=== PATIENT | male | born 1955 | race Caucasian/White ===

== ENCOUNTER 2021-06-21 17:54 | Emergency (ER) | payer SELFPAY ==
[2021-06-21 18:05] VITALS: BP 146/80; PULSE 73; RESP 18; TEMP 36.5; O2SAT 99
--- NOTE | 2021-06-21 19:13 | ED.URI ---
HPI - URI/Sore Throat General Chief Complaint: Upper Respiratory Infection Stated Complaint: CONGESTION Source: patient Mode of arrival: ambulatory History of Present Illness HPI Narrative: This is a 66-year-old male who presented to urgent care with complaints of a sore throat uncontrollable cough and muscle pain to his chest area due to coughing. Patient did not take anything at home for his symptoms. Patient strep test negative. He did note that he has some shortness of breath but he is a smoker. The patient denies,CP, palpitation, extremity numbness, lightheadedness, dizziness, constipation, diarrhea, chills, or fever. Related Data Allergies Allergy/AdvReac Type Severity Reaction Status Date / Time No Known Allergies Allergy Unknown Verified 01/04/19 09:58 Review of Systems Review of Systems: A 14 organ system Review of Systems was performed and pertinent positives included in the HPI, otherwise remaining ROS is negative. [facility] Family History Family History (Updated 06/21/21 @ 19:15 by JERI MackayP-C) Other Family history non-contributory Exam Narrative: GENERAL: This is a well-nourished, well-developed patient, in no apparent distress. HEAD: normocephalic, atraumatic. EYES: PERRL. Sclera clear/white. Vision is grossly intact. EARS: External ears normal, auditory canals clear and without drainage, TMs normal without perforation. Hearing grossly intact. NOSE: External nose normal with no obvious nasal discharge, nares without redness, no rhinorrhea. THROAT: Mucous membranes moist, posterior pharynx clear. NECK: Neck supple, non-tender without lymphadenopathy, masses or thyromegaly. CARDIOVASCULAR: Regular rate and rhythm without murmurs, gallops, or rubs. RESPIRATORY: Clear to auscultation. Breath sounds equal bilaterally. No wheezes, rales, or rhonchi. GASTROINTESTINAL: Abdomen soft, non-tender, nondistended. Bowel sounds are active. No hepato-splenomegaly, or palpable masses. No guarding. SKIN: warm, intact with no suspicious lesions or rash, good texture and turgor. NEURO: awake, alert, and oriented to person, place and time. There were no obvious focal neurologic abnormalities. Steady gait EXTREMITIES: Normal range of motion. No edema. No calf tenderness. Negative Homans sign bilaterally. BACK: Nontender without deformity or crepitance. No flank tenderness. Course Course Emergency Course: Patient will discharge with bronchitis she will be given Tessalon Perles, guaifenesin, Flexeril for his muscle pain and albuterol Vital Signs Vital signs: Vital Signs Temperature 97.7 F 06/21/21 18:05 Pulse Rate 73 06/21/21 18:05 Respiratory Rate 18 06/21/21 18:05 Blood Pressure 146/80 H 06/21/21 18:05 Pulse Oximetry 99 06/21/21 18:05 Temperature 97.7 F 06/21/21 18:05 Pulse Rate 73 06/21/21 18:05 Respiratory Rate 18 06/21/21 18:05 Blood Pressure 146/80 H 06/21/21 18:05 Pulse Oximetry 99 06/21/21 18:05 MDM - URI/Sore Throat Differential Diagnosis Differential diagnosis: Likely upper respiratory infection, sinusitis, viral infection and bronchitis Lab Data Labs: Strep Screen Presumptive Negative *(Reference Range: Negative)* Discharge Plan Discharge Clinical Impression: Bronchitis Patient Disposition: Home, Self-Care Condition: Stable Instructions: Antibiotic Form, Acute Bronchitis (ED) Additional Instructions: Increase fluids especially juices and water [id number] cough and cold medicine of your choice for your symptoms Prescription cough medicine as directed--caution drowsiness and no driving or alcohol Cough tablets as directed for cough--do not bite, chew or suck on--swallow whole Continue your inhaler/nebulizer as directed Steroids as directed--take with food heat to the face 20-30 minutes 4-6 times a day for pain Salt water gargles, throat lozenges or throat sprays as desired Antibiotic as
== END 2021-06-21 19:15 | disposition home or self-care (01) ==
PROVIDERS: Emergency Provider Nurse Practitioner
DX: J40 Bronchitis, not specified as acute or chronic (principal)
CPT/HCPCS: 87081; 87880; 99213; G0463

== ENCOUNTER 2022-01-18 16:16 | Emergency (ER) | payer SELFPAY ==
--- NOTE | ~2022-01-18 | CT_ITS ---
EXAMINATION: CT abdomen pelvis w con DATE: 01/18/2022 18:34 INDICATION: Left groin pain. Left abdominal pain. TECHNIQUE: Computed tomography (CT) of the abdomen and pelvis was performed with 100 mL Omnipaque 300 intravenous contrast. Automated exposure control and iterative reconstruction technique were employe d. The dose-length product was 738.13 mGy-cm. COMPARISON: None. FINDINGS: The visualized portions of the lung bases demonstrate mild atelectasis. No pleural effusion . The heart size is normal. There are coronary artery calcifications. No pericardial effusion. There is a small sliding hiatal hernia. Calcifications in the liver is minimally consistent with old granul omatous disease. There are changes of cholecystectomy. The pancreas and adrenal glands are normal. Th ere is cortical thinning of the kidneys. There is a left inguinal hernia containing fat. There is sub cutaneous fat stranding in left inguinal region. There are no dilated loops of bowel. There are no di lated loops of bowel. The appendix is not visualized. There is a supraumbilical ventral hernia contai jen fat. There are no pathologically enlarged lymph nodes. There is no free intraperitoneal fluid. T here is a benign bone island in right pelvis. There is severe lower lumbar spondylosis. IMPRESSION: 1. Subcutaneous fat stranding in left inguinal region, consistent with inflammation. 2. Left inguinal hernia containing fat. 3. Small sliding hiatal hernia. 4. Supraumbilical ventral hernia containing fat. Reviewed, dictated and finalized at location A. IMPRESSION: 1. Subcutaneous fat stranding in left inguinal region, consistent with inflamma tion. 2. Left inguinal hernia containing fat. 3. Small sliding hiatal hernia. 4. Supraumbilical ventral hernia containing fat.
[2022-01-18 16:25] VITALS: BP 134/80; PULSE 91; RESP 14; TEMP 36.6; O2SAT 98
[2022-01-18 17:45] LABS: Basophils Absolute Auto 0.1 K/mm3 (0.0-0.1); Basophils Percent Auto 0.8 % (0.2-1.2); Eosinophils Absolute Auto 0.2 K/mm3 (0-0.3); Eosinophils Percent Auto 2.1 % (0-4.4); Hematocrit 38.4 % (42.0-52.0); Hemoglobin 12.4 g/dL (14.0-18.0); Immature Granulocyte Absolute 0.02 K/mm3 (0.00-0.031); Immature Granulocyte Percent A 0.2 % (0-0.5); Lymphocytes Absolute Auto 2.11 K/mm3 (0.9-3.2); Lymphocytes Percent Auto 24.3 % (18.3-44.2); Mean Corpuscular HGB Conc 32.3 g/dl (32-36); Mean Corpuscular Hemoglobin 30.1 pg (26-34); Mean Corpuscular Volume 93.2 fl (80-100); Mean Platelet Volume 10.5 fl (7.4-10.4); Monocytes Absolute Auto 0.7 K/mm3 (0.1-0.6); Monocytes Percent Auto 7.8 % (2.6-8.5); Neutrophils Absolute Auto 5.6 K/mm3 (1.3-6.7); Neutrophils Percent Auto 64.8 % (45.5-73.1); Platelet Count Result 185 k/mm3 (150-375); Red Blood Count 4.12 M/mm3 (4.6-6.20); Red Cell Distribution Width 13.7 % (11.5-14.5); White Blood Count 8.7 K/mm3 (4.5-10.0)
[2022-01-18 17:51] LABS: Appearance Urine Clear (Clear); Bilirubin Urine Negative (Negative); Blood Urine Negative (Negative); Color Urine Yellow (Yellow); Glucose Urine UA Negative (Negative); Ketones Urine Negative (Negative); Leukocyte Esterase Ur Negative LEU/UL (Negative); Nitrate Urine Negative (Negative); Protein Urine Negative (Negative); Urobilinogen Urine 0.2 mg/dL (<2.0); pH Urine 5.5 (5.0-9.0)
[2022-01-18 17:56] LABS: INR 1.1
[2022-01-18 17:57] LABS: Partial Thromboplastin Time 31.8 SECONDS (22.3-36.8)
[2022-01-18 17:58] LABS: Alanine Aminotransferase 13 U/L (6-50); Albumin Level 3.8 g/dL (3.5-5.1); Alkaline Phosphatase 41 U/L (38-126); Anion Gap 4 mmol/L (8-16); Aspartate Amino Transferase 21 U/L (17-59); Bilirubin,Total 0.3 mg/dL (0.2-1.3); Blood Urea Nitrogen 9 mg/dL (9-20); Calcium 8.8 mg/dL (8.4-10.2); Carbon Dioxide 27 mmol/L (22-30); Chloride 105 mmol/L (98-107); Estimated CRCL calculation 72 ml/min; Estimated Glomerular Filt Rate > 60; Glucose 100 mg/dL (65-110); Potassium 3.5 mmol/L (3.4-5.0); Sodium 136 mmol/L (137-145)
[2022-01-18 18:10] LABS: Add Urine Microscopic? NO
--- NOTE | 2022-01-18 18:36 | ED.GENADULT ---
HPI - General Adult General Chief complaint: Skin/Abscess/Foreign Body Stated complaint: groin pain/bruising Time Seen by Provider: 01/18/22 17:01 Source: patient and RN notes reviewed Mode of arrival: ambulatory Limitations: no limitations History of Present Illness HPI narrative: This is a 66 year old male who presents for left groin bruising and pain. Patient states on Friday he slid off the jasmine of his car, and once he stepped down he felt pain to left groin. He has noticed worsening. He has some mild pain with movement. He denies new leg numbness or tingling. He reports mild left lower abdominal. HE denies any other abnormal bruising or bleeding. He denies lightheadedness or dizziness. Related Data Home Medications Medication Instructions Recorded Confirmed No Home Medications 01/18/22 01/18/22 Allergies Allergy/AdvReac Type Severity Reaction Status Date / Time No Known Allergies Allergy Unknown Verified 01/04/19 09:58 Review of Systems Review of Systems: All systems reviewed & are unremarkable except as noted in HPI and below Constitutional: Constitutional: Denies chills, Denies fatigue and Denies fever(s) ENT: Denies nasal congestion Gastrointestinal: Gastrointestinal: Reports abdominal pain, Denies nausea and Denies vomiting PMF Past Medical History Medical History (Updated 01/19/22 @ 00:00 by Geremias Ferguson) Arthritis Surgical History Surgical History (Updated 01/18/22 @ 19:04 by Marianna Arreola MD) History of appendectomy Family History Family History (Updated 06/21/21 @ 19:15 by LEIGHTON Mackay-C) Other Family history non-contributory Social History Social History (Updated 01/18/22 @ 19:04 by Marianna Arreola MD) Smoking status: Current every day smoker Exam Narrative: GENERAL: Well-appearing, well-nourished, and in no acute distress. HEAD: Normocephalic, atraumatic EYES: EOMI, conjunctiva clear without discharge NECK: Supple, without lymphadenopathy or mass RESPIRATORY: No respiratory distress, Airway patent, Respirations non-labored, Clear to auscultation without rales, rhonchi or wheeze HEART: Regular rate and rhythm. No murmur heard. Normal peripheral pulses. ABDOMEN: Soft, LLQ TTP, nondistended, normal active bowel sounds. No masses. No rebound or guarding, No organomegaly., left groin ecchymosis, ttp, no scrotal involvement EXTREMITIES: No edema, normal strength with full range of motion. SKIN: Warm, dry, normal color without rash NEURO: Alert and oriented x3. CN 2-12 grossly intact. No focal deficits. PSYCH: Normal mood and affect. Course Reevaluation(s) Reevaluation #1: I discussed with patient bruising is likely due to pulled muscle. I discussed treatment and follow up . Date: 01/18/22 Time: 19:05 Vital Signs Vital signs: Vital Signs Temperature 97.8 F 01/18/22 16:25 Pulse Rate 91 01/18/22 16:25 Respiratory Rate 14 01/18/22 16:25 Blood Pressure 134/80 01/18/22 16:25 Pulse Oximetry 98 01/18/22 16:25 Oxygen Delivery Room Air 01/18/22 16:25 Temperature 97.8 F 01/18/22 16:25 Pulse Rate 69 01/18/22 19:27 Respiratory Rate 17 01/18/22 19:27 Blood Pressure 129/74 01/18/22 19:27 Pulse Oximetry 97 01/18/22 19:27 Oxygen Delivery Room Air 01/18/22 16:25 Medical Decision Making Vital Signs Vital Signs: Vital Signs Temperature 97.8 F 01/18/22 16:25 Pulse Rate 91 01/18/22 16:25 Respiratory Rate 14 01/18/22 16:25 Blood Pressure 134/80 01/18/22 16:25 Pulse Oximetry 98 01/18/22 16:25 Oxygen Delivery Room Air 01/18/22 16:25 Temperature 97.8 F 01/18/22 16:25 Pulse Rate 69 01/18/22 19:27 Respiratory Rate 17 01/18/22 19:27 Blood Pressure 129/74 01/18/22 19:27 Pulse Oximetry 97 01/18/22 19:27 Oxygen Delivery Room Air 01/18/22 16:25 Lab Data Lab results reviewed: Yes I reviewed the patient's lab results. Result diagrams:
[2022-01-18 19:27] VITALS: BP 129/74; PULSE 69; RESP 17; O2SAT 97
== END 2022-01-18 19:29 | disposition home or self-care (01) ==
PROVIDERS: Emergency Provider General Practice
DX: S30.1XXA Contusion of abdominal wall, initial encounter (principal); M19.90 Unspecified osteoarthritis, unspecified site; K40.90 Unilateral inguinal hernia, without obstruction or gangrene, not specified as recurrent; K44.9 Diaphragmatic hernia without obstruction or gangrene; K43.9 Ventral hernia without obstruction or gangrene; F17.200 Nicotine dependence, unspecified, uncomplicated; W17.89XA Other fall from one level to another, initial encounter
CPT/HCPCS: 36415; 74177; 80053; 81003; 85025; 85610; 85730; 99284; Q9967

== ENCOUNTER 2022-08-21 13:52 | Outpatient (CLI) | payer MEDICARE, SELFPAY ==
--- NOTE | ~2022-08-21 | US_ITS ---
EXAMINATION: US art doppler w press LE BI DATE: 08/21/2022 15:37 INDICATION: Lower limb pain and decreased pulses TECHNIQUE: Segmental pressures and plethysmographic and Doppler waveforms of the brachial and lower e xtremity arteries were obtained. COMPARISON: None. FINDINGS: Right and left brachial artery pressures of 133 mm Hg and 137 mm Hg, respectively, are concordant (no rmal difference <= 30 mmHg). The right and left high-thigh pressure indices are 1.01 and 0.91, respec tively (normal > 1.2). The right ankle-brachial index (JACINDA) is 0.85 (normal >= 0.9-1). The right great toe-brachial index (T BI) is 0.39 (normal >= 0.6-0.8). The right lower extremity segmental pressure gradients are normal. I ncreased between the pqlkj-sha-igbu and ojyhx-nui-ektv right popliteal artery and the sdnba-jza-xqho popliteal artery and the arteries of the right ankle likely due to artifactually elevated velocities at the ahexd-fim-hqnp right popliteal artery. (normal gradients <= 20-30 mmHg between adjacent levels on the same leg or the same levels on the two legs). Arterial waveforms are biphasic with systolic u pstrokes which remain within normal limits. The left JACINDA is 0.49. The left TBI is 0.35. The left lower extremity segmental pressure gradients are increased between the left high thigh and the mqtlp-pii-yriv popliteal artery. Arterial waveforms ar e biphasic with systolic upstrokes which remain within normal limits. IMPRESSION: 1. Arterial occlusive disease to bilateral lower limbs likely in the aortobiiliac arteries as well as within both lower limbs characterized by mildly decreased bilateral high thigh pressure indices and right JACINDA, severely decreased left JACINDA and moderately decreased bilateral TBI's Reviewed, dictated and finalized at location A. OPERATIONS TECHNICAL DIRECTOR IMPRESSION: 1. Arterial occlusive disease to bilateral lower limbs likely in the aortobiili ac arteries as well as within both lower limbs characterized by mildly decrease d bilateral high thigh pressure indices and right JACINDA, severely decreased left JACINDA and moderately decreased bilateral TBI's
== END 2022-08-21 13:53 | disposition home or self-care (01) ==
PROVIDERS: PCP Family Medicine Adolescent Medicine; Visit Provider Family Medicine Adolescent Medicine
DX: I73.9 Peripheral vascular disease, unspecified (principal)
CPT/HCPCS: 93923

== ENCOUNTER 2022-10-01 14:08 | Outpatient (CLI) | payer MEDICARE, SELFPAY ==
--- NOTE | ~2022-10-01 | XR_ITS ---
EXAMINATION:XR_[id number]_CR DATE: 10/01/2022 14:24 INDICATION: Neck pain TECHNIQUE: AP, lateral, lateral swimmers and odontoid views of the cervical spine are provided. COMPARISON: None FINDINGS: Alignment is normal. The odontoid process is intact. No fracture is identified. The vertebr al body heights are maintained. There is moderate loss of intervertebral disc space height from C3-4 through C6-7. There is multilevel moderate facet and uncovertebral joint osteoarthritis. Prevertebral soft tissues are normal. IMPRESSION: 1. Moderate cervical spondylosis without acute findings. Reviewed, dictated and finalized at location B.
== END 2022-10-01 14:09 ==
PROVIDERS: PCP Family Medicine Adolescent Medicine; Visit Provider Family Medicine Adolescent Medicine
DX: M54.2 Cervicalgia (principal); M43.02 Spondylolysis, cervical region
CPT/HCPCS: 72040

== ENCOUNTER → 2022-12-23 13:49 | Outpatient (CLI) | payer MEDICARE, SELFPAY ==
--- NOTE | ~2022-12-23 | CT_ITS ---
EXAMINATION: CT lung screening DATE: 12/23/2022 14:00 INDICATION: Personal history nicotine dependence, current smoker with 61 pack year history TECHNIQUE: Computed tomography (CT) of the chest was performed without intravenous contrast. The dose -length product (DLP) was 104.07 mGy-cm. Automated exposure control and iterative reconstruction tech [employer] were employed. COMPARISON: None FINDINGS: There is mild emphysema. There is a 2 mm nodule of the right lung apex. Scarring is noted i n the lung apices. The lungs are free of acute opacities. No pleural effusion or pneumothorax. No pat hologically enlarged thoracic lymph nodes are identified. The heart size is normal. Calcified coronar y artery atherosclerosis is noted. There is mild thoracic spondylosis. There is a small sliding hiata l hernia. Changes of cholecystectomy are noted. IMPRESSION: 1. Lung-RADS category 2: Benign appearance or behavior. Continue annual screening with noncontrast lo w-dose chest CT in 12 months. Reviewed, dictated and finalized at location [] IMPRESSION: 1. Lung-RADS category 2: Benign appearance or behavior. Continue annual screeni ng with noncontrast low-dose chest CT in 12 months.
== END ==
PROVIDERS: PCP Family Medicine Adolescent Medicine; Visit Provider Nurse Practitioner Family
DX: Z12.2 Encounter for screening for malignant neoplasm of respiratory organs (principal); F17.210 Nicotine dependence, cigarettes, uncomplicated
CPT/HCPCS: 71271

== ENCOUNTER 2023-01-15 09:39 | Outpatient (CLI) | payer MEDICARE, SELFPAY ==
--- NOTE | 2023-01-15 11:00 | NEURO_ITS ---
Impression: # Complains of numbness of right foot. # Neuropathy with dispersed F-wave responses. # Needle/EMG exam neurogenic. # Clinical correlation recommended. Nerve Conduction Studies Anti Sensory Summary Table Stim Site NR Peak (ms) P-T Amp (?V) Site1 Site2 Delta-P (ms) Dist (cm) Steve (m/s) Right Sup Fibular Anti Sensory (Ant Lat Mall) 14 cm 3.7 4.6 14 cm Ant Lat Mall 3.7 16.0 43 Right Sural Anti Sensory (Lat Mall) Calf 3.3 8.7 Calf Lat Mall 3.3 16.0 48 Motor Summary Table Stim Site NR Onset (ms) O-P Amp (mV) Site1 Site2 Delta-0 (ms) Dist (cm) Steve (m/s) Right Lateral Plantar Motor (ADM) Med Mall 3.5 0.0 Right Peroneal Motor (Vastus Med) Ankle 4.8 1.2 Popit Ankle 11.5 42.0 37 Popit 16.3 0.8 Right Tibial Motor (Abd Brewer Brev) Ankle 4.8 0.5 Knee Ankle 12.9 43.0 33 Knee 17.7 0.3 F Wave Studies NR F-Lat (ms) L-R F-Lat (ms) Right Peroneal (Mrkrs) (EDB) DISPERSED RESPONSE NR Right Tibial (Mrkrs) (Abd Hallucis) DISPERSED RESPONSE NR EMG Side Muscle Nerve Root Ins Act Fibs Amp Dur Recrt Comment Right AntTibialis Dp Br Fibular L4-5 Nml Nml Nml Nml Reduced Right Gastroc Tibial S1-2 Nml Nml Nml >12ms Reduced Right Fibularis Long Sup Br Fibular L5-S1 Nml Nml Nml Nml Nml Right Flex Dig Long Tibial L5-S2 Nml Nml Nml Nml Nml Right Ext Dig Brev Dp Br Fibular L5, S1 Nml Nml Nml >12ms Reduced Right QuadratusFem QuadFemoris L4-5, S1 Nml Nml Nml Nml Reduced MTDD
== END 2023-01-15 09:40 | disposition home or self-care (01) ==
LOC: ANHNEURO 09:40
PROVIDERS: PCP Family Medicine Adolescent Medicine; Visit Provider Nurse Practitioner Family
DX: R20.0 Anesthesia of skin (principal); G62.9 Polyneuropathy, unspecified
CPT/HCPCS: 95886; 95909

== ENCOUNTER 2023-10-08 15:27 | Outpatient (CLI) | payer MEDICARE, SELFPAY ==
--- NOTE | ~2023-10-08 | MR_ITS ---
EXAMINATION: MR knee LT wo con DATE: 10/08/2023 16:11 INDICATION: Left knee effusion post fall with knee giving out while walking TECHNIQUE: Magnetic resonance imaging (MRI) of the left knee was performed without intravenous contra st. Sequences included coronal PD-weighted FSE, coronal PD-weighted FS FSE, sagittal T2-weighted FSE , sagittal PD-weighted FS FSE and axial PD weighted fat saturated FSE. COMPARISON: None. FINDINGS: Medial compartment: Complex tear of the posterior horn and posterior body of the medial meniscus. There is partial thickn ess cartilage ulceration with chondral surface regularity along the lateral side of the anterior to c entral weightbearing medial femoral condyle. Lateral compartment: Small longitudinal tear extending obliquely to contact the inferior articular surface at the junction of the body and posterior horn of the lateral meniscus. Linear full-thickness chondral tear/fissures extending along a few intra-articular fracture planes at the posterior medial aspect of the lateral tibial plateau which will be further detailed below. Articular cartilage is otherwise normal. Patellofemoral compartment: Small region of deep chondral ulceration at the medial side of the medial patellar facet. Shallow cho ndral ulceration at the patellar apical ridge but with underlying small central subchondral osteophyt e. Larger region of full-thickness chondral ulceration with underlying cortical irregularity and mini mal subarticular edema-like and mild cystlike changes at the central aspect of the lateral trochlea. Ligaments and tendons: Posterior cruciate ligament is normal. There is thickening and increased intrasubstance signal along the anterior cruciate ligament which falls a normal angle relative to Blumensaat line and which is wi thout definitive discontiguous fibers which could be related to chronic mucoid degeneration or more a cute partial tear or reactive edema related to the adjacent tibial plateau fracture. The medial colla teral ligament and fibular collateral ligament complex are normal. Mild distal quadriceps tendinopath y/enthesopathy. Patellar tendon is normal. The visualized medial and lateral hamstring tendons as wel l as the iliotibial band are normal. Fluid: Moderate-sized knee joint effusion with synovitis at the suprapatellar pouch. No loose osteochondral bodies identified. Osseous/other: Comminuted fractures of the proximal left tibia. This includes a nondisplaced fracture plane extendin g obliquely inferiorly and posterior medially from the region of the intercondylar notch across the m edial metaphyseal region of the proximal tibia. There is additional minimally displaced fracture plan es with intra-articular extension involving the posterior half of the lateral tibial plateau without significant fracture gap with up to 1 mm step-off along the articular cortex. No other fractures iden tified. No pathologic marrow replacing process. IMPRESSION: 1. Nondisplaced comminuted fractures of the proximal tibia involving both the medial and lateral aspe cts of the proximal tibia with intra-articular involvement of the posterior aspect of the lateral tib ial plateau where there is associated full-thickness chondral injury. 2. Medial and lateral meniscal tears, the former larger and complex. 3. Mild osteoarthritis with moderate grade chondral malacia the medial compartment. 4. Mild patellofemoral osteoarthritis with regions of patellar and trochlear high-grade chondromalaci a. 5. Thickening and increased intrasubstance signal of the anterior cruciate ligament without definitiv e tear which could be related to mucoid degeneration, axial edema related to the adjacent proximal ti bial fractures but low-grade partial tear cannot be excluded. Reviewed, dictated and finalized at location B. Electronically signed by Carloz Valera
== END 2023-10-08 15:28 ==
LOC: MICIMG 15:28
PROVIDERS: PCP Family Medicine Adolescent Medicine; Visit Provider Family Medicine Adolescent Medicine
DX: M25.462 Effusion, left knee (principal); S82.255A Nondisplaced comminuted fracture of shaft of left tibia, initial encounter for closed fracture; S83.282A Other tear of lateral meniscus, current injury, left knee, initial encounter; S83.242A Other tear of medial meniscus, current injury, left knee, initial encounter; M17.12 Unilateral primary osteoarthritis, left knee; M94.262 Chondromalacia, left knee; X58.XXXA Exposure to other specified factors, initial encounter
CPT/HCPCS: 73721

== ENCOUNTER 2023-12-17 10:07 | Outpatient (CLI) | payer MEDICARE, SELFPAY ==
--- NOTE | 2023-12-17 11:00 | NEURO_ITS ---
Impression: # Complains of numbness of lower extremities, right more than left. Non-diabetic. # Severe neuropathy involving right lower extremity with no responses from motor or sensory nerves. 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 # Needle/EMG exam reveals decreased motor unit potentials but no active denervation.potentials.. Nerve Conduction Studies Anti Sensory Summary Table Stim Site NR Peak (ms) P-T Amp (?V) Site1 Site2 Delta-P (ms) Dist (cm) Steve (m/s) Left Sup Fibular Anti Sensory (Ant Lat Mall) 14 cm 3.4 8.3 14 cm Ant Lat Mall 3.4 16.0 47 Right Sup Fibular Anti Sensory (Ant Lat Mall) NO RESPONSE 14 cm NR 14 cm Ant Lat Mall 16.0 Left Sural Anti Sensory (Lat Mall) NO RESPONSE Calf NR Calf Lat Mall 16.0 Right Sural Anti Sensory (Lat Mall) NO RESPONSE Calf NR Calf Lat Mall 16.0 Motor Summary Table Stim Site NR Onset (ms) O-P Amp (mV) Site1 Site2 Delta-0 (ms) Dist (cm) Steve (m/s) Left Peroneal Motor (Vastus Med) Ankle 4.0 1.1 Popit Ankle 11.8 44.0 37 Popit 15.8 0.7 Right Peroneal Motor (Vastus Med) NO RESPONSE Ankle NR Popit Ankle 0.0 Popit NR Left Tibial Motor (Abd Brewer Brev) Ankle 4.3 3.1 Knee Ankle 11.2 43.0 38 Knee 15.5 1.6 Right Tibial Motor (Abd Brewer Brev) NO RESPONSE Ankle NR Knee Ankle 0.0 Knee NR F Wave Studies NR F-Lat (ms) L-R F-Lat (ms) Left Peroneal (Mrkrs) (EDB) 56.54 Right Peroneal (Mrkrs) (EDB) NO RESPONSE NR Left Tibial (Mrkrs) (Abd Hallucis) 58.24 Right Tibial (Mrkrs) (Abd Hallucis) NO RESPONSE NR EMG Side Muscle Nerve Root Ins Act Fibs Amp Dur Recrt Comment Right AntTibialis Dp Br Fibular L4-5 Nml Nml Decr >12ms +3 Right Gastroc Tibial S1-2 Nml Nml Decr >12ms +3 Right Fibularis Long Sup Br Fibular L5-S1 Nml Nml Decr >12ms +3 Right Flex Dig Long Tibial L5-S2 Nml Nml Decr >12ms +3 Right Ext Dig Brev Dp Br Fibular L5, S1 Nml Nml Decr >12ms +3 Left AntTibialis Dp Br Fibular L4-5 Nml Nml Decr >12ms +2 Left Fibularis Long Sup Br Fibular L5-S1 Nml Nml Decr >12ms +2 Left Gastroc Tibial S1-2 Nml Nml Decr >12ms +2 Left Flex Dig Long Tibial L5-S2 Nml Nml Decr >12ms +2 Left Ext Dig Brev Dp Br Fibular L5, S1 Nml Nml Decr >12ms +3 Right QuadratusFem QuadFemoris L4-5, S1 Nml Nml Decr >12ms +3 Left QuadratusFem QuadFemoris L4-5, S1 Nml Nml Decr >12ms +2 MTDD
== END 2023-12-17 10:08 | disposition home or self-care (01) ==
LOC: ANHNEURO 10:09
PROVIDERS: PCP Family Medicine Adolescent Medicine; Visit Provider Student in an Organized Health Care Education/Training Program
DX: G62.9 Polyneuropathy, unspecified (principal)
CPT/HCPCS: 95886; 95910

== ENCOUNTER 2024-04-20 00:20 | Day surgery (SDC) | payer MEDICARE, SELFPAY ==
[2024-04-15 12:19] VITALS: BMI 25.8
--- NOTE | 2024-04-15 12:52 | PC.NURSE ---
Spoke with _PATIENT_ regarding medication ELIQUIS. Pt. verbalizes understanding that the last dose of Eliquis is to be taken on 04/17/2024 and the Endoscopist will instruct them when to restart after the procedure.
[2024-04-20 12:45] VITALS: BP 136/81; PULSE 83; RESP 19; TEMP 36.1; O2SAT 98
[2024-04-20] MEDS: LACTATED RINGERS 1,000 ML 150 ML IV CONT (12:53)
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
[2024-04-20 13:35] VITALS: BP 133/72; PULSE 67; RESP 21; O2SAT 97
[2024-04-20 13:45] VITALS: BP 167/87; PULSE 65; RESP 20; O2SAT 100
[2024-04-20 13:55] VITALS: BP 163/86; PULSE 70; RESP 15; O2SAT 100
[2024-04-20 14:05] VITALS: BP 152/79; PULSE 69; RESP 18; O2SAT 100
[2024-04-20 14:15] VITALS: BP 152/78; PULSE 72; RESP 17; O2SAT 100
[2024-04-20] MEDS: FAMOTIDINE 20 MG/2 ML VIAL IV PUSH (14:21)
--- NOTE | 2024-04-20 14:29 | SUR.PHASEII ---
Pt c/o abdominal pain and cramping, stating he felt like air was trapped. Abdomen hard and distended on palpation with increasing pain to RLQ when pressure applied. Pain rated 4/10. Walked pt to the bathroom. Pt was able to pass some air while on the toilet, but became nauseated and vomited. Pt was brought back to the recovery room and belched and vomited once more, stating it felt like acid reflux. Dr. Mathews made aware and pepcid was given per verbal order. 1430 Pt walking around in room, stating he felt much better and pain was lower. Abdomen still distended, but softer. Pt no longer nauseated. Walked to bathroom and was able to pass some air. Pt educated to call or go to the ER immediately with severe or worsening pain, N/V, black or tarry stools, rectal bleeding, vomiting blood, or a temperature. Pt and stated understanding.
== END 2024-04-20 14:39 | disposition home or self-care (01) ==
PROVIDERS: PCP Family Medicine Adolescent Medicine; Visit Provider Internal Medicine Gastroenterology
PROC: 0DJD8ZZ Inspection of Lower Intestinal Tract, Via Natural or Artificial Opening Endoscopic (ICD-10-PCS; CPT 45378; principal; 2024-04-20 14:00)
DX: D12.3 Benign neoplasm of transverse colon (principal); D12.5 Benign neoplasm of sigmoid colon; K64.8 Other hemorrhoids; E78.5 Hyperlipidemia, unspecified; I10 Essential (primary) hypertension; F41.9 Anxiety disorder, unspecified; I99.8 Other disorder of circulatory system; Z95.820 Peripheral vascular angioplasty status with implants and grafts; Z79.82 Long term (current) use of aspirin; Z79.01 Long term (current) use of anticoagulants; Z79.891 Long term (current) use of opiate analgesic; Z98.890 Other specified postprocedural states; Z90.49 Acquired absence of other specified parts of digestive tract; Z95.1 Presence of aortocoronary bypass graft; Z87.891 Personal history of nicotine dependence
CPT/HCPCS: 45385; 88305; J2704; J7120

== ENCOUNTER 2024-06-10 10:03 | Outpatient (CLI) | payer MEDICARE, SELFPAY ==
--- NOTE | ~2024-06-10 | MR_ITS ---
EXAMINATION: MR knee LT wo con DATE: 06/10/2024 11:02 INDICATION: Left knee pain TECHNIQUE: Magnetic resonance imaging (MRI) of the left knee was performed without intravenous contra st. Sequences included coronal PD-weighted FSE, coronal PD-weighted FS FSE, sagittal T2-weighted FSE , sagittal PD-weighted FS FSE and axial PD weighted fat saturated FSE. COMPARISON: Left knee radiographs dated 11/11/2023 FINDINGS: Medial compartment: Complex medial meniscal tear which begins near the posterior root as a longitudinal horizontal tear p lionel extending to the free edge with the site of tear progressing more peripherally along the inferio r articular surface of the posterior horn and transition to a vertical tear plane extending to the in ferior articular surface in the peripheral third of the meniscal body. Partial-thickness chondral ulc eration and fissuring with mild underlying cortical irregularity a tiny subchondral osteophytes along the lateral side of the anterior to central weightbearing medial femoral condyle. Cartilage along th e medial tibial plateau is relatively preserved. Lateral compartment: There is a small oblique tear extending to the inferior articular surface of the posterior horn of th e lateral meniscus. There is a separate small radial tear along the inner free edge of the junction o f the anterior horn and body of the lateral meniscus. There is suggestion of an old fracture with mil d depression of the articular cortex at the central aspect of the posterior rim of the lateral tibial plateau. There is overlying partial-thickness chondral ulceration and deep fissuring. The remaining cartilage along the lateral tibial plateau as well as the cartilage along the weightbearing lateral f emoral condyle is relatively preserved. Patellofemoral compartment: Deep chondral ulceration and fissuring with underlying central subchondral osteophyte at the central aspect of the patellar apical ridge. Additional deep chondral ulceration and associated subchondral o steophytes along the medial side of the medial patellar facet. Shallow chondral fissure along the lat eral patellar facet. There is additional deep chondral ulceration with underlying cortical irregulari ty and small central subchondral osteophytes at the inferior aspect of the lateral trochlea. Mild par tial-thickness cartilage loss with mild chondral surface regularity along the inferior aspect of the medial trochlea. Ligaments and tendons: Anterior and posterior cruciate ligaments are normal. The medial collateral ligament and fibular aniceto ateral ligament complex are normal. Small enthesophytes and mild enthesopathy at the distal quadricep s tendon. Patellar tendon is normal. The visualized medial and lateral hamstring tendons as well as t he iliotibial band are normal. Fluid: Small left knee joint effusion at the suprapatellar pouch. No loose osteochondral bodies identified. Osseous/other: Normal marrow signal. No fracture or pathologic marrow replacing process. IMPRESSION: 1. Medial and lateral meniscal tears. 2. Tricompartmental osteoarthritis, moderate severity at the lateral aspect of the patellofemoral art iculation with extensive moderate and high-grade chondromalacia. Mild osteoarthritis with additional regions of moderate and high-grade chondral malacia in the medial and lateral compartments. 3. Suggestion of a likely old healed fractures of the posterior aspect of the lateral tibial plateau with focal mild depression of the articular cortex along the posterior rim. 4. Small left knee joint effusion. Reviewed, dictated and finalized at location A. TOP TECHNICIAN IMPRESSION: 1. Medial and lateral meniscal tears. 2. Tricompartmental osteoarthritis, moderate severity at the lateral aspect of the patellofemoral articulation with extensive moderate and high-grade chondrom alacia. Mild osteoarthritis with additional regions of moderate and high-grade chondral malacia in the medial and lateral compartments. 3. Suggestion of a likely old healed fractures of the posterior aspect of the l ateral tibial plateau with focal mild depression of the articular cortex along the posterior rim. 4. Small left knee joint effusion.
== END 2024-06-10 10:04 | disposition home or self-care (01) ==
LOC: GOSHIMG 10:03
PROVIDERS: PCP Family Medicine Adolescent Medicine; Visit Provider Family Medicine Adolescent Medicine
DX: S83.242A Other tear of medial meniscus, current injury, left knee, initial encounter (principal); M17.12 Unilateral primary osteoarthritis, left knee; M94.262 Chondromalacia, left knee; M25.462 Effusion, left knee
CPT/HCPCS: 73721

== ENCOUNTER 2025-05-10 13:06 | Outpatient (CLI) | payer MEDICARE, SELFPAY ==
--- OUTSIDE RECORDS SUMMARY | 2025-05-10 13:17 | XMS_ITS | Patient Health Record ---
Author Organization [facility] Address [address] [place], [place] [id number] Support Name Relationship Address Phone CHARY LARSON Emergency Contact Unknown BETZY LARSON Guarantor Unknown [phone] Reason For Referral No Information Plan Of Treatment No Information Insurance Providers Payer Name Payer Address Payer Phone Subscriber Number Group Number Insured Name Patient Relationship to Insured Coverage Start Date Coverage End Date [facility] [place] 2[place] ([facility]) ATTN CLAIMS [address] [place] [address] [id number] CHARY LARSON Spouse - patient is the spouse of the insured
--- OUTSIDE RECORDS SUMMARY | 2025-05-10 13:17 | XMS_ITS | Clinical Summary ---
Author Organization [facility] Address [address] [place] [address] Phone Care Team Providers Care Racking Technician Name Role Phone Baljinder Meza MD, Solo Hamilton Primary Care Provider Allergies No known active allergies Medications No known medications Active Problems Problem Noted Date Diagnosed Date Tobacco use 02/21/2016 Social History Tobacco Use Types Packs/Day Years Used Date Smoking Tobacco: Every Day Cigarettes Alcohol Use Standard Drinks/Week Comments No 0 (1 standard drink = 0.6 oz pur e alcohol) Sex and Gender Information Value Date Recorded Sex Assigned at Not on file Legal Sex Male 12:05 PM CDT Gender Identity Not on file Sexual Orientation Not on file Last Filed Vital Signs Vital Sign Reading Time Taken Comments Blood Pressure 154/72 02/21/2016 12:04 PM CDT Pulse 74 02/21/2016 12:04 PM CDT Temperature 36.7 C (98 F) 02/21/2016 12:04 PM CDT Respiratory Rate 18 02/21/2016 12:04 PM CDT Oxygen Saturation 97% 02/21/2016 12:04 PM CDT Inhaled Oxygen Concentration - - Weight 82.6 kg (182 lb) 02/21/2016 7:33 AM CDT Height 182.9 cm (6') 02/12/2016 10:01 AM CDT Body Mass Index 24.68 02/12/2016 10:01 AM CDT Plan of Treatment Health Maintenance Due Date Last Done Comments DTAP/TDAP/TD VACCINES (1 - Tdap) 1976 COLORECTAL SCREENING 2002 Colorectal Cancer Screening 2002 FIT-DNA Q 3 years 2002 FIT/FOBT Q 1 year 2002 Flex Sig/CT Colonography Q 5 years 2002 PNEUMOCOCCAL VACCINE 50+ YEARS (1 of 1 - PCV) 06/19/20 07 ZOSTER VACCINE (1 of 2) 2007 INFLUENZA VACCINE (#1) 2025 RSV VACCINE (60+ or ) (1 - 1-dose 75+ series) 2032 Medical Devices Implanted Type Area Java Software Developer Device Identifier Shelf Expiration Date Model / Serial / Lot Anchr Sut Twinfx Ult Pk 5.5mm [id number] - [id number] Implanted:Qty : 1 on 02/21/2016 by Gerry Abad MD at [facility] Right: Shoulder ALVAR[employer]O NEPHEW- ENDOSCOPY 04/29/2019 [id number] / / [id number] Description:Processed on req uisition,[id number]. Advance Directives For more information, please contact: [phone] * Full Code (Latest Code Status on File) Date Activated Date Inactivated Comments 02/21/2016 7:36 AM 02/21/2016 2:10 PM Care Teams Racking Technician Relationship Specialty Start Date End Date Solo Gale Jr., MD PCP - General Family Practice 02/06/16
--- OUTSIDE RECORDS SUMMARY | 2025-05-10 13:17 | XMS_ITS | Clinical Summary ---
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 study. I attest to the conclusions in the final report that is provided above. Electronically Signed By: Adrian Louie MD 03/10/2025 8:31:51 AM CDT us Miko Louie MD IM US PROCEDURES Final Result * US JACINDA (03/08/2025 10:59 AM CDT) Anatomical Region Laterality Modality Vascular N/A Ultrasound 03/08/2025 9:34 AM CDT Narrative 03/10/2025 9:35 AM CDT Lower Extremity Arterial Doppler Report Patient Name: BETZY SALAS W : 1955 Study Date: 03/08/2025 9:34:00 AM Gender: M Edger Hand: Gomez,Yoselin RVS Ref Provider: MIKO LOUIE Quality: Adequate Order Provider: MIKO LOUIE PROCEDURES: Arterial Report: Ankle - Brachial Index Doppler exam. 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 COMPARISONS: The previous exam was completed on 07/08/2024 RT PT/DP 0/.46 LT PT/DP .96/.80. MEASUREMENTS: Right Value Left Value Rt Brachial Pressure 114 mmHg Lt Brachial Pressure 125 mmHg Rt MANAGER LIGHTING Pressure 0 mmHg Lt MANAGER LIGHTING Pressure 135 mmHg Rt DPA Pressure 60 mmHg Lt DPA Pressure 125 mmHg Rt PT JACINDA Resting 0 Lt PT JACINDA Resting 1.08 Rt DP JACINDA Resting 0.48 Lt DP JACINDA Resting 1 FINDINGS: Right Posterior Tibial Artery Analysis: The posterior tibial waveform is absent. Right Dorsalis Pedis Artery Analysis: The dorsalis pedis waveform is monophasic. Left Posterior Tibial Artery Analysis: The posterior tibial waveform is multiphasic. Left Dorsalis Pedis Artery Analysis: The dorsalis pedis waveform is multiphasic. - CONCLUSIONS: 1. Ankle-brachial index of <0.5 is consistent with severe arterial disease in the right lower extremity. 2. Ankle-brachial index of 0.9-1.3 is within normal limits in the left lower extremity. ATTESTATION: I have reviewed and interpreted the pertinent images and measurements of this study. I attest to the conclusions in the final report that is provided above. Electronically Signed By: Adrian Louie MD 03/10/2025 8:31:15 AM CDT Procedure Note Adrian Louie MD - 03/10/2025 Lower Extremity Arterial Doppler Report Patient Name: BETZY SALAS W : 1955 Study Date: 03/08/2025 9:34:00 AM Gender: M Edger Hand: Yoselin Dyer RVS Ref Provider: MIKO LOUIE Quality: Adequate Order Provider: MIKO LOUIE PROCEDURES: Arterial Report: Ankle - Brachial Index Doppler exam. 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 COMPARISONS: The previous exam was completed on 07/08/2024 RT PT/DP 0/.46 LT PT/DP.96/.80. MEASUREMENTS: Right Value Left Value Rt Brachial Pressure 114 mmHg Lt Brachial Pressure 125 mmHg Rt MANAGER LIGHTING Pressure 0 mmHg Lt MANAGER LIGHTING Pressure 135 mmHg Rt DPA Pressure 60 mmHg Lt DPA Pressure 125 mmHg Rt PT JACINDA Resting 0 Lt PT JACINDA Resting 1.08 Rt DP JACINDA Resting 0.48 Lt DP JACINDA Resting 1 FINDINGS: Right Posterior Tibial Artery Analysis: The posterior tibial waveform is absent. Right Dorsalis Pedis Artery Analysis: The dorsalis pedis waveform is monophasic. Left Posterior Tibial Artery Analysis: The posterior tibial waveform is multiphasic. Left Dorsalis Pedis Artery Analysis: The dorsalis pedis waveform is multiphasic. - CONCLUSIONS: 1. Ankle-brachial index of <0.5 is consistent with severe arterial diseasein the right lower extremity. 2. Ankle-brachial index of 0.9-1.3 is within normal limits in the leftlower extremity. ATTESTATION: I have reviewed and interpreted the pertinent images and measurements ofthis study. I attest to the conclusions in the final report that is provided above. Electronically Signed By: Adrian Louie MD 03/10/2025 8:31:15 AM CDT us Miko Louie MD IMG US PROCEDURES Final Result * US Arterial Duplex Lower Extremity Left Limited (03/08/2025 10:59 AM CDT) Anatomical Region Laterality Modality Vascular Left Ultrasound 03/08/2025 9:33 AM CDT Narrative 03/10/2025 9:35 AM CDT Lower Extremity Arterial Duplex Report Patient Name: BETZY SALAS W : 1955 (69y 8m) Gender: M Study Date: 03/08/2025 09:33:45 AM Ht(Inch): Wt(Lb): BSA: Edger Hand: DUY ATKINS Provider: MIKO LOUIE Quality: Adequate Ref Provider: MIKO LOUIE PROCEDURES: Arterial Report: A non-invasive vascular imaging study of the left lower extremity arteries was performed using B-mode ultrasound, color flow, and spectral Doppler. 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 COMPARISONS: No change compared to prior study. The previous exam was completed on 07/08/2024. MEASUREMENTS: Left Value Lt CABLE TESTERS HELPER Dst PSV 64.00 cm/sec Lt Profunda Prx PSV 76.00 cm/sec Lt SFA Prx PSV 69.00 cm/sec Lt SFA Mid PSV 108.00 cm/sec Lt SFA Dst PSV 113.00 cm/sec Lt Pop Prx PSV 83.00 cm/sec Lt Pop Dst PSV 112.00 cm/sec FINDINGS: Left: Triphasic arteries include the left common femoral artery, profunda femoral artery, proximal superficial femoral artery, mid superficial femoral artery, distal superficial femoral artery and popliteal artery. CONCLUSION: 1. No evidence of significant atherosclerotic plaque or stenosis in the left lower extremity. ATTESTATION: I have reviewed and interpreted the pertinent images and measurements of this study. I attest to the conclusions in the final report that is provided above. Electronically Signed By: Adrian Louie MD 03/10/2025 8:30:52 AM CDT Procedure Note Adrian Louie MD - 03/10/2025 Lower Extremity Arterial Duplex Report Patient Name: BETZY SALAS W : 1955 (69y 8m) Gender: M Study Date: 03/08/2025 09:33:45 AM Ht(Inch): Wt(Lb): BSA: Edger Hand: DUY ATKINS Provider: MIKO LOUIE Quality: Adequate Ref Provider: MIKO LOUIE PROCEDURES: Arterial Report: A non-invasive vascular imaging study of the left lowerextremity arteries was performed using B-mode ultrasound, color flow, and spectralDoppler. 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 COMPARISONS: No change compared to prior study. The previous exam was completed on07/08/2024. MEASUREMENTS: Left Value Lt CABLE TESTERS HELPER Dst PSV 64.00 cm/sec Lt Profunda Prx PSV 76.00 cm/sec Lt SFA Prx PSV 69.00 cm/sec Lt SFA Mid PSV 108.00 cm/sec Lt SFA Dst PSV 113.00 cm/sec Lt Pop Prx PSV 83.00 cm/sec Lt Pop Dst PSV 112.00 cm/sec FINDINGS: Left: Triphasic arteries include the left common femoral artery, profundafemoral artery, proximal superficial femoral artery, mid superficial femoral artery,distal superficial femoral artery and popliteal artery. CONCLUSION: 1. No evidence of significant atherosclerotic plaque or stenosis in theleft lower extremity. ATTESTATION: I have reviewed and interpreted the pertinent images and measurements ofthis study. I attest to the conclusions in the final report that is provided above. Electronically Signed By: Adrian Louie MD 03/10/2025 8:30:52 AM CDT Miko Louie MD [facility] US PROCEDURES Final Result * CTA Abdominal Aorta And Bilateral Iliofemoral Runoff (12/30/2023 12:06 PM CDT) Anatomical Region Laterality Modality Body Bilateral Computed Tomogra phy 01/01/2024 7:19 AM CDT Narrative 01/01/2024 7:34 AM CDT EXAM DESCRIPTION: CTA ABDOMINAL AORTA AND BILATERAL ILIOFEMORAL RUNOFF REASON FOR STUDY: PVD PVD Dx: PVD (peripheral vascular disease) ([facility]) I73.9 (ICD-10-CM) Comments: 08/05/2023- thrombectomy of left limb of aortobifem BPG and endart of L SFA TECHNIQUE: CTA of the abdominal aorta with bilateral lower extremity runoff was performed without and with intravenous contrast using helical scanning technique. Precontrast and arterial images were obtained of the lower extremities. Images reviewed with soft tissue and bone windows. Reconstructed coronal and sagittal MPR images reviewed. All images stored on PACS. 3D MIP images rendered on scanning unit and reviewed at time of interpretation. Automated exposure control was used as a dose optimization technique for this examination. CONTRAST TYPE/DOSE: 100mL of IOVERSOL 350 MG IODINE/ML INTRAVENOUS SYRINGE injected via intravenous COMPARISON: 08/05/2023 FINDINGS: VASCULATURE: NON-CONTRASTED IMAGING: Moderate vascular calcifications. ABDOMINAL AORTA: No dissection, aneurysm, intramural hematoma, rupture, or penetrating atherosclerotic ulcer. MESENTERIC/RENAL: Celiac axis and distal branches are patent. Superior mesenteric artery demonstrates 50% proximal stenosis with patent distal vessels. Inferior mesenteric artery is not visualized near expected origin, unchanged. Right renal artery is single with greater than 90% proximal stenosis unchanged. Left renal artery is single with severe proximal stenosis. PELVIC VASCULATURE: Common/external iliac arteries: Aortobifemoral graft is identified and widely patent. Proximal and distal anastomoses are widely patent. Internal iliac arteries are patent via collateral flow. RIGHT LOWER EXTREMITY VASCULATURE: The right common femoral artery is patent and bifurcates with patent profunda femoral artery. The right superficial femoral artery remains occluded through the adductor canal. The popliteal reconstitutes in its mid to distal segment and small in size. Calcifications obscured runoff vessels proximally the anterior tibial appears dominant runoff to the foot posterior tibial and peroneal are not well seen distally. LEFT LOWER EXTREMITY VASCULATURE: The left common femoral artery is patent and bifurcates with patent profunda femoral artery. The left superficial femoral artery is patent with severe stenosis in the adductor canal greater than 75% similar to previous. Left popliteal demonstrates multifocal severe stenosis through its trifurcation. Calcifications obscures proximal runoff vessels. Distal runoff vessels are partially visualized possibly related to delayed flow. ABDOMEN/PELVIS: LOWER CHEST: No significant pulmonary abnormalities. No effusion. Small hiatal hernia. LIVER: Normal size. No identified cystic or solid masses. No cysts. GALLBLADDER: Surgically absent with clips in place. BILE DUCTS: No intrahepatic or extrahepatic ductal dilatation. SPLEEN: Normal size. No focal lesions. PANCREAS: No identified cystic or solid masses. No significant calcifications. No adjacent inflammation or peripancreatic fluid collections. Pancreatic duct not dilated. ADRENALS: Normal. KIDNEYS/URINARY TRACT: No identified cystic or solid masses. No cysts. No stones. No hydronephrosis or hydroureter. Symmetric enhancement. Normal bladder. GI: No dilated bowel loops. No obvious wall thickening. Normal appendix. No significant diverticular disease. PERITONEUM: No ascites or free air. RETROPERITONEUM: No mass or adenopathy. REPRODUCTIVE: No significant abnormality. MUSCULOSKELETAL: No acute findings. OTHER: No other abnormality. IMPRESSION: No evidence of aortoiliac inflow stenosis to the lower extremities bilaterally. Patent aortobifemoral graft. Right leg demonstrates occlusion of the superficial femoral artery through the adductor canal with reconstitution of the popliteal artery. Single vessel distal runoff. Left leg demonstrates severe stenosis of the superficial femoral artery in the adductor canal with multifocal severe stenosis of the popliteal artery. Proximal runoff vessels are obscured by calcification. Distal runoff vessels are partially visualized possibly related to delayed flow. THIS IS AN ELECTRONICALLY VERIFIED FINAL REPORT 01/01/2024 7:34 AM - Electronically signed by Carlin Mir M.D. RB T: Report ID: [id number] Reading Location: [id number] Procedure Note Carlin Mir MD - 01/01/2024 EXAM DESCRIPTION: CTA ABDOMINAL AORTA AND BILATERAL ILIOFEMORAL RUNOFF REASON FOR STUDY: PVD PVD Dx: PVD (peripheral vascular disease) ([facility]) I73.9 (ICD-10-CM) Comments: 08/05/2023- thrombectomy of left limb of aortobifem BPG andendart of L SFA TECHNIQUE: CTA of the abdominal aorta with bilateral lower extremityrunoff was performed without and with intravenous contrast using helicalscanning technique. Precontrast and arterial images were obtained of the lower extremities. Images reviewed with soft tissue and bone windows. Reconstructed coronal and sagittal MPR images reviewed. All images storedon PACS. 3D MIP images rendered on scanning unit and reviewed at time of interpretation. Automated exposure control was used as a doseoptimization technique for this examination. CONTRAST TYPE/DOSE: 100mL of IOVERSOL 350 MG IODINE/ML INTRAVENOUSSYRINGE injected via intravenous COMPARISON: 08/05/2023 FINDINGS: VASCULATURE: NON-CONTRASTED IMAGING: Moderate vascular calcifications. ABDOMINAL AORTA: No dissection, aneurysm, intramural hematoma, rupture,or penetrating atherosclerotic ulcer. MESENTERIC/RENAL: Celiac axis and distal branches are patent. Superior mesenteric artery demonstrates 50% proximal stenosis with patent distal vessels. Inferior mesenteric artery is not visualized near expected origin,unchanged. Right renal artery is single with greater than 90% proximal stenosisunchanged. Left renal artery is single with severe proximal stenosis. PELVIC VASCULATURE: Common/external iliac arteries: Aortobifemoral graft is identified and widely patent. Proximal and distal anastomoses are widely patent. Internal iliac arteries are patent via collateral flow. RIGHT LOWER EXTREMITY VASCULATURE: The right common femoral artery is patent and bifurcates with patentprofunda femoral artery. The right superficial femoral artery remains occludedthrough the adductor canal. The popliteal reconstitutes in its mid to distalsegment and small in size. Calcifications obscured runoff vessels proximally the anterior tibial appears dominant runoff to the foot posterior tibial and peroneal are not well seen distally. LEFT LOWER EXTREMITY VASCULATURE: The left common femoral artery ispatent and bifurcates with patent profunda femoral artery. The left superficial femoral artery is patent with severe stenosis in the adductor canalgreater than 75% similar to previous. Left popliteal demonstrates multifocalsevere stenosis through its trifurcation. Calcifications obscures proximalrunoff vessels. Distal runoff vessels are partially visualized possibly relatedto delayed flow. ABDOMEN/PELVIS: LOWER CHEST: No significant pulmonary abnormalities. No effusion.Small hiatal hernia. LIVER: Normal size. No identified cystic or solid masses. No cysts. GALLBLADDER: Surgically absent with clips in place. BILE DUCTS: No intrahepatic or extrahepatic ductal dilatation. SPLEEN: Normal size. No focal lesions. PANCREAS: No identified cystic or solid masses. No significant calcifications. No adjacent inflammation or peripancreatic fluidcollections. Pancreatic duct not dilated. ADRENALS: Normal. KIDNEYS/URINARY TRACT: No identified cystic or solid masses. No cysts.No stones. No hydronephrosis or hydroureter. Symmetric enhancement. Normal bladder. GI: No dilated bowel loops. No obvious wall thickening. Normalappendix. No significant diverticular disease. PERITONEUM: No ascites or free air. RETROPERITONEUM: No mass or adenopathy. REPRODUCTIVE: No significant abnormality. MUSCULOSKELETAL: No acute findings. OTHER: No other abnormality. IMPRESSION: No evidence of aortoiliac inflow stenosis to the lower extremities bilaterally. Patent aortobifemoral graft. Right leg demonstrates occlusion of the superficial femoral arterythrough the adductor canal with reconstitution of the popliteal artery. Singlevessel distal runoff. Left leg demonstrates severe stenosis of the superficial femoral arteryin the adductor canal with multifocal severe stenosis of the poplitealartery. Proximal runoff vessels are obscured by calcification. Distal runoffvessels are partially visualized possibly related to delayed flow. THIS IS AN ELECTRONICALLY VERIFIED FINAL REPORT 01/01/2024 7:34 AM - Electronically signed by Carlin [place] T: Report ID: [id number] Reading Location: [place] [id number] Nirali Daniels NP IMG CT PROCEDURES Final Result from Last 3 Months or Most Recently Relevant to Health Maintenance Insurance [facility] MEDICARE ADVANTAGE UHC MEDICARE ADVANTAGE Member Subscriber Plan / Payer (Ef fective 2022-Present) Name:Betzy Salas Relation to Subscriber:Self Name:Betzy Salas Payer ID:[id number] (NAIC) Type:[facility] MEDIC[facility] Address: [address] Advance Directives For more information, please contact: [phone] * Full Code (Latest Code Status on File) Date Activated Date Inactivated Comments 09/27/2023 2:14 AM 09/28/2023 10:09 PM * Full Code Date Activated Date Inactivated Comments 08/05/2023 1:50 PM 08/07/2023 5:47 PM * Full Code Date Activated Date Inactivated Comments 05/13/2023 5:37 PM 05/19/2023 6:31 PM * Full Code Date Activated Date Inactivated Comments 05/01/2023 6:18 PM 05/07/2023 3:10 PM * Full Code Date Activated Date Inactivated Comments 05/01/2023 4:15 PM 05/01/2023 6:18 PM Care Teams Regional Wildlife Agent Relationship Specialty Start Date End Date Adrian Beltran MD PCP - General Family Medicine 07/21/24 Porfirio Grace MD Consulting Physician Cardiovascular Disease 05/07/23
--- NOTE | 2025-05-19 12:07 | WPDHOLTEREM ---
Holter/Event Monitor Holter/Event Monitor Date of procedure: 05/10/25 Holter/Event Procedure: 3-7 Day Holter Monitor Indications: Palpitations Conclusion: 1. 3 days holter monitor on 05/10/25. 2. Predominant rhythm is sinus rhythm. HR range 54-130 bpm; average HR 77 bpm. 3. There are rare premature supraventricular complexes, rare supraventricular couplets, and rare supraventricular triplets. There is 1 episode of supraventricular tachycardia at 118 bpm lasting 12 beats. 4. There are rare premature ventricular complexes, rare ventricular couplets and longest ventricular bigeminy was 167.6 seconds. No ventricular tachycardia. 5. No significant pauses greater than 3 seconds. 6. Patient reports 5 episodes of symptoms of chest pain, irregular beats, fluttering which demonstrate sinus rhythm, HR range 75-94 with 2 episodes with PAC's and 1 episode with PVC.
== END 2025-05-10 13:07 | disposition home or self-care (01) ==
PROVIDERS: PCP Family Medicine Adolescent Medicine; Visit Provider Nurse Practitioner Family
DX: R00.2 Palpitations (principal)
CPT/HCPCS: 93242